=== PATIENT | male | born 1995 | race African-American/Black ===

== ENCOUNTER 2023-12-01 16:13 | Emergency (ER) | payer BC ==
[~2023-12-01] VITALS: Ht 182.9 cm; Wt 97.0 kg
[2023-12-01 16:32] VITALS: TEMP 36.55848; O2SAT 96
[2023-12-01 16:56] VITALS: BP 125/90; PULSE 100; RESP 16; TEMP 98.3; O2SAT 96
[2023-12-01 17:37] LABS: HEPATITIS B SURFACE AB 58.6 mIU/mL (<10)
[2023-12-01 17:57] LABS: HIV 1/2 AB P24AG Negative (Negative)
[2023-12-01 18:10] LABS: HEPATITIS C AB NON REACTIVE (Neg) (Negative)
[2023-12-01 18:23] LABS: BASOPHILS % 0.4 % (0.0-2.0); EOSINOPHILS % 0.1 % (0.0-5.0); HEMATOCRIT. 43.9 % (42.0-52.0); HEMOGLOBIN. 14.4 g/dL (14.0-18.0); LYMPHOCYTES % 20.7 % (20.0-50.0); MEAN CORPUSCULAR HEMOGLOBIN 31.3 pg (28.0-32.0); MEAN CORPUSCULAR HGB CONC 32.8 g/dL (31.0-37.0); MEAN CORPUSCULAR VOLUME 95.5 fL (80.0-94.0); MONOCYTES % 5.6 % (2.0-8.0); NEUTROPHILS % 73.2 % (40.0-76.0); RED CELL DISTRIBUTION WIDTH 13.4 % (11.6-14.6)
[2023-12-01 18:24] LABS: CARBON DIOXIDE 19 mEq/L (21-32); CHLORIDE 108 mEq/L (98-107); POTASSIUM 3.8 mEq/L (3.5-5.1); SODIUM 140 mEq/L (136-145)
[2023-12-01 18:25] LABS: CALCIUM 9.8 mg/dL (8.7-10.4); DIFFERENTIAL COMMENT 1
[2023-12-01 18:30] LABS: GLUCOSE 91 mg/dL (70-105); UREA NITROGEN BLOOD 9 mg/dL (9-23)
[2023-12-01 18:31] LABS: ALANINE AMINOTRANSFERASE 51 IU/L (10-49); ASPARTATE AMINOTRANSFERASE 33 IU/L (<34)
[2023-12-01 18:32] LABS: BILIRUBIN DIRECT 0.2 mg/dL (<=3.0); BILIRUBIN TOTAL 0.7 mg/dL (0.1-1.0); PROTEIN TOTAL 8.5 g/dL (6.0-8.3)
[2023-12-01 18:46] LABS: MEAN PLATELET VOLUME 8.5 fl (7.4-10.4); PLATELET 195 x1000/uL (130-400)
[2023-12-01] MEDS ORDERED: EMTRICITABINE 200MG CAPSULE PO ONE (19:00)
[2023-12-01] MEDS ORDERED: RALTEGRAVIR 400 MG TABLET PO ONE (19:00)
[2023-12-01] MEDS ORDERED: TENOFOVIR 300MG TABLET PO ONE (19:00)
[2023-12-01 19:03] LABS: HEPATITIS B SURFACE ANTIGEN NEGATIVE (Negative)
[2023-12-01] MEDS ORDERED: EMTR200C3 PO (19:04)
[2023-12-01] MEDS ORDERED: VIRE PO (19:04)
[2023-12-01] MEDS ORDERED: ONDA4TAB50 PO (19:04)
[2023-12-01] MEDS ORDERED: RALT400T PO (19:04)
[2023-12-01 19:24] LABS: HEPATITIS C AB NON REACTIVE (Neg) (Negative)
[2023-12-01] MEDS: ONDANSETRON HCL 4MG TABLET PO ONE (19:35)
[2023-12-01] MEDS: EMTRICITABINE 200MG CAPSULE PO NR (19:36)
[2023-12-01] MEDS: RALTEGRAVIR 400 MG TABLET PO NR (19:36)
[2023-12-01] MEDS: TENOFOVIR 300MG TABLET PO NR (19:36)
== END 2023-12-01 20:20 | disposition home or self-care (01) ==
LOC: ER 16:13
DX: Z20.2 Contact with and (suspected) exposure to infections with a predominantly sexual mode of transmission (principal); F19.90 Other psychoactive substance use, unspecified, uncomplicated; Z79.899 Other long term (current) drug therapy
CPT/HCPCS: 80076; 80048; 85025; 87340; 86706; 36415; 86705; 99284; Q0162; Z7610